=== PATIENT | male | born 1950 | race Caucasian/White ===

== ENCOUNTER → 2022-09-16 | Emergency (ER) | payer OTHER ==
[~2022-09-16] VITALS: Ht 180.3 cm; Wt 97.5 kg
[~2022-09-16] MED LIST: AMLODIPINE-OLM1 EACH PO; BETAMETHASO IJ; HYDROCHLOROTHIA25 MG PO; IRBESARTAN300 MG PO; LOVASTATIN40 MG PO; PROAIR RESPICL90 MCG IH
== END | disposition left against medical advice (07) ==
LOC: ER 13:05
DX: M79.606 Pain in leg, unspecified (principal)